=== PATIENT | female | born 1965 | race Caucasian/White ===

== ENCOUNTER 2017-05-08 09:33 | Day surgery (SDC) | payer OTHER ==
[~2017-05-08] VITALS: Ht 160 cm; Wt 90.1 kg
[2017-05-08] VITALS (20 sets, daily range): BP systolic 117–154; BP diastolic 58–82; PULSE 83–96; RESP 14–27; Ht 160 cm; Wt 90.1 kg
[~2017-05-08 09:33] MED LIST: CEFAZOLIN 2 GM/50 ML (PMX) 50 ML IVPB SCH; SOD CHLORIDE 0.9% 1,000 ML IV SCH; SUCCINYLCHOLINE CHLORIDE 100 MG/5 ML SYG IV ONE
[2017-05-08] MEDS ORDERED: BUPIVACAINE 0.25% (MPF) 30 ML INJ ONE (13:37)
[2017-05-08] MEDS ORDERED: FENTAnyl 50 MCG/ML VIAL ONE (13:44)
[2017-05-08] MEDS ORDERED: MIDAZOLAM 1 MG/ML 2 ML INJ ONE ×2 (13:44→16:18)
[2017-05-08] MEDS ORDERED: PROPOFOL 20 ML ONE (13:44)
[2017-05-08] MEDS ORDERED: ROCURONIUM 50 MG INJ ONE (13:44)
[2017-05-08] MEDS ORDERED: LIDOCAINE 1% (MDV) 20 ML INJ ONE (13:45)
[2017-05-08] MEDS ORDERED: ROPIVACAINE 0.5 % 30 ML VIAL ONE (13:45)
[2017-05-08] MEDS ORDERED: CEFAZOLIN 1 GM INJ ONE (14:13)
[2017-05-08] MEDS ORDERED: ONDANSETRON 4 MG INJ ONE (14:15)
[2017-05-08] MEDS ORDERED: DEXAMETHASONE 4 MG/ML 1 ML INJ ONE (14:16)
[2017-05-08] MEDS ORDERED: FAMOTIDINE 20 MG INJ ONE (14:16)
[2017-05-08] MEDS ORDERED: EPHEDrine SULFATE 50 MG/5 ML SYG ONE (14:17)
[2017-05-08] MEDS ORDERED: SUGAMMADEX SODIUM 200 MG/2 ML VIAL IV ONE (14:33)
--- NOTE | 2017-05-08 14:36 | OPR ---
Date/Time of Note Date/Time of Note DATE: 05/08/17 TIME: 14:33 Operative Report Procedure Date: May 08, 2017 Preoperative Diagnosis symptomatic gallstones Postoperative Diagnosis same Operation Performed lap gianni Surgeon: Jamari TRAN Specimens gallbladder Procedure Description Patient is taken to the OR and prepped and draped in usual sterile fashion. Surgical timeout was performed IV antibiotics are given. Infraumbilical incision is made with a 15 blade. Dissection cautery was carried down to the fascia. The fascia is divided. 0 Vicryl U stitch is placed into the fascia. Balloon Galloway trocar is introduced and pneumoperitoneum was established. Mid epigastric 12 mm optical trocar right upper quadrant right upper flank 5 mm optical trocar was placed under direct visualization upon initial inspection there is adhesed to the gallbladder which were taken down bluntly. The cystic duct is identified the critical view was established the cystic duct and cystic artery are divided using a 35 mm echelon vascular stapler gallbladder taken off the gallbladder bed the staple lines reinforced with additional clips gallbladder was retrieved using the Endo Catch bag. There is good hemostasis. Ports removed under direct physician 0 Vicryl U stitch was tied down skin is closed using skin yvonne local anesthesia is injected dry dressings were applied Jamari TRAN May 08, 2017 14:36
[2017-05-08] MEDS ORDERED: KETOROLAC 30 MG INJ IV ONE (15:00)
[2017-05-08] MEDS ORDERED: hydrALAzine 20 MG INJ IV PRN (15:00)
[2017-05-08] MEDS ORDERED: HALOPERIDOL 5 MG INJ IV PRN (15:00)
[2017-05-08] MEDS ORDERED: MIDAZOLAM 1 MG/ML 2 ML INJ IV PRN (15:00)
[2017-05-08] MEDS ORDERED: MEPERIDINE 25 MG INJ IV PRN (15:00)
[2017-05-08] MEDS ORDERED: ONDANSETRON 4 MG INJ IV PRN (15:00)
[2017-05-08] MEDS ORDERED: LORAZEPAM 2 MG INJ IV PRN (15:00)
[2017-05-08] MEDS ORDERED: HYDROmorphONE (0.2 MG/ML) 10ML SYG IV PRN ×3 (15:00)
[2017-05-08] MEDS ORDERED: DIPHENHYDRAMINE 50 MG INJ IV PRN (15:00)
[2017-05-08] MEDS ORDERED: HYDROCODONE/APAP (5/325) TAB PO ONE (15:00)
[2017-05-08] MEDS ORDERED: LABETALOL HCL 20MG INJ IV PRN (15:00)
[2017-05-08] MEDS ORDERED: HYDROmorphONE (0.2 MG/ML) 10ML SYG IV ONE (15:04)
== END 2017-05-08 17:50 | disposition home or self-care (01) ==
LOC: SDS 09:33
PROVIDERS: ATTEND Surgery
DX: K80.20 Calculus of gallbladder without cholecystitis without obstruction (principal); E66.9 Obesity, unspecified; Z68.35 Body mass index [BMI] 35.0-35.9, adult
CPT/HCPCS: 47562; 84703; 88304; J0690; J1100; J1170; J1885; J2250; J2405; J2795; J3010; J7999; Z7512; Z7610

== ENCOUNTER 2017-05-15 19:07 | Emergency (ER) | payer OTHER ==
[~2017-05-15] VITALS: Ht 152.4 cm; Wt 65.0 kg
[2017-05-15 19:11] VITALS: Ht 152.4 cm; Wt 65.0 kg
[2017-05-15] MEDS ORDERED: CEFTRIAXONE 1 GM INJ IM ONE (20:00)
[2017-05-15] MEDS ORDERED: HYDR-906 PO (20:06)
[2017-05-15] MEDS ORDERED: AMOX1TAB9 PO (20:50)
--- NOTE | 2017-05-15 20:55 | ERD ---
ER Documentation Chief Complaint Date/Time DATE: 05/15/17 TIME: 20:52 Chief Complaint from [facility] by Dr. Covarrubias, for fluid drainage from recent gianni HPI This is a 52-year-old lady who is here for a seroma to drain. The patient had gallbladder removal by Dr. Mayfield a week ago and is having some fullness underneath the umbilicus. She went to an outside ER had a CAT scan done which showed a 4.7 x 3.4 cm seroma. The patient was sent here from that ER. I called and spoke with Dr. Mayfield and let him know about the patient's arrival he told me to open the yvonne and expel the seroma. She has had no fever abdominal pain or pus ROS All systems reviewed and are negative except as per history of present illness. Medications Home Meds Active Scripts Amoxicillin/Potassium Clav (Amox-Clav 500-125 mg Tablet) 500-125 mg Tab, 1 TAB PO BID for 7 Days, TAB Prov:JOSE C SANTIAGO DO 05/15/17 Reported Medications Hydrocodone/Acetaminophen ([place] 5-325 Tablet) 1 Each Tablet, 1 EACH PO Q6H, TAB 05/15/17 Allergies Allergies: Coded Allergies: No Known Allergy (Unverified , 05/15/17) PMhx/Soc History of Surgery: Yes (EAR SX 11YRS OLD, CERVICAL CONE OPERATION 2015, BTL 2000, UTERINE BIOSY ) Anesthesia Reaction: No Hx Neurological Disorder: No Hx Respiratory Disorders: No Hx Cardiac Disorders: No Hx Psychiatric Problems: No Hx Miscellaneous Medical Probl: Yes (KIDNEY STONES 15 YEARS AGO, CS '93, '96,' 01, CERVICAL CA) Hx Alcohol Use: No Hx Substance Use: No Hx Tobacco Use: Yes (2 DAYS AGO) Smoking Status: Former smoker FmHx Family History: No coronary disease Physical Exam Vitals Vital Signs Date Time Temp Pulse Resp B/P Pulse Ox O2 Delivery O2 Flow Rate FiO2 05/15/17 19:11 98.3 82 16 107/52 97 Physical Exam Const: Well-developed, well-nourished Head: Atraumatic, normocephalic Eyes: Normal Conjunctiva, PERRLA, EOMI, normal sclera, no nystagmus ENT: Normal External Ears, Nose and Mouth, moist mucus membranes. Neck: Full range of motion. No meningismus, no lymphadenopathy. Resp: Clear to auscultation bilaterally, no wheezing, rhonchi, rales Cardio: Regular rate and rhythm, no murmurs, S1 S2 present Abd: Soft, non tender x 4, non distended. Normal bowel sounds, no guarding or rebound, no pulsitile abdominal masses or bruits Skin: No petechiae or rashes, no ecchymosis , no maculopapular rash, slight erythema around the umbilical wound with yvonne intact. No pus or serous fluid is expressible Back: No midline or flank tenderness Ext: No cyanosis, or edema, FROM x 4, normal inspection, neurovascularly intact x 4 Neur: Awake and alert, STR 5/5 x 4, sensation intact x 4, no focal findings, cerebellum intact Psych: Normal Mood and Affect Results 24 hrs Current Medications Medications (Trade) Dose Ordered Sig/Jey Route PRN Reason Start Time Stop Time Status Last Admin Dose Admin Ceftriaxone Sodium (Rocephin) 1 gm ONCE ONCE IM 05/15/17 20:00 05/15/17 20:01 DC 05/15/17 20:16 Procedures/MDM I removed the yvonne in the middle of the wound left feet to external yvonne intact. Gently probed and the wound to make a small opening about dehiscing the wound. Pressure was put on the inferior part of the wound and a large amount of serosanguineous fluid was expelled. Wound was then cleaned and Steri-Stripped and covered with gauze Departure Diagnosis: Primary Impression: Seroma Condition: Stable Patient Instructions: Seroma, Postsurgical Referrals: Jamari MAYFIELD APOSTOLOS A. DO May 15, 2017 20:55
[2017-05-15 22:20] VITALS: BP 139/72; PULSE 77; RESP 20; TEMP 99.1
== END 2017-05-15 22:22 | disposition home or self-care (01) ==
LOC: E/R 19:07
DX: K91.872 Postprocedural seroma of a digestive system organ or structure following a digestive system procedure (principal); Z87.891 Personal history of nicotine dependence
CPT/HCPCS: 96372; J0696; Z7502

== ENCOUNTER 2017-05-16 10:04 | Emergency (ER) | payer OTHER ==
[~2017-05-16] VITALS: Ht 157.5 cm; Wt 89.0 kg
[~2017-05-16 10:04] MED LIST changes: +AMOX1TAB9 PO; -CEFAZOLIN 2 GM/50 ML (PMX) 50 ML IVPB SCH; +HYDR-906 PO; -SOD CHLORIDE 0.9% 1,000 ML IV SCH; -SUCCINYLCHOLINE CHLORIDE 100 MG/5 ML SYG IV ONE
[2017-05-16 10:07] VITALS: Ht 157.5 cm; Wt 89.0 kg
--- NOTE | 2017-05-16 12:28 | CONS ---
Date/Time of Note Date/Time of Note DATE: 05/16/17 TIME: 12:27 Assessment/Plan Assessment/Plan Chief Complaint/Hosp Course s/p lap gianni with open wound and serous drainage Problems: Additional Assessment/Plan dc home with daily packing and f/u in office Consultation Date/Type/Reason Admit Date/Time Date of Consultation: May 16, 2017 Type of Consultation: General Surgery Reason for Consultation abdominal pain and open wound Referring Provider: NACHO ALDANA MD Hx of Present Illness This is a 52-year-old female who underwent a lap scopic cholecystectomy. She had some abdominal pain and underwent evaluation at outside hospital. CT scan showed a small fluid collection in the infraumbilical space. Patient was evaluated by [facility] ER after transfer from outside hospital ER. Wound was opened and packed one day prior. Patient requested surgical evaluation. Eyes: no complaints ENT: no complaints Respiratory: no complaints Cardiovascular: no complaints Gastrointestinal: other (open wound with drainage), pain Genitourinary: no complaints Musculoskeletal: no complaints Skin: no complaints Neurologic: no complaints Endocrine: no complaints Lymphatic: no complaints Psychological: no complaints Immunologic: no complaints Past Medical History Medical History: other (s/p lap gianni) Social History Smoking Status: Current every day smoker Exam/Review of Systems Vital Signs Vitals Vital Signs Date Time Temp Pulse Resp B/P Pulse Ox O2 Delivery O2 Flow Rate FiO2 05/16/17 10:07 98.9 104 20 126/71 96 Exam Constitutional: alert, oriented, well developed Psych: nl mood/affect, no complaints Head: atraumatic, normocephalic Eyes: EOMI, nl conjunctiva, nl lids ENMT: nl external ears & nose, nl lips & teeth Neck: non-tender, supple Respiratory: clear to auscultation, normal air movement Cardiovascular: regular rate and rhythm Gastrointestinal: other (open infra abdominal wound with drainage) Genitourinary - Female: nl adnexae, nl external genitalia Musculoskeletal: nl extremities to inspection, nl gait and stance Extremities: normal pulses 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
--- NOTE | 2017-05-16 16:01 | ERD ---
ER Documentation Chief Complaint Date/Time DATE: 05/16/17 TIME: 15:56 Chief Complaint Complains of painful urination HPI 52-year-old female patient presents to the ED with a status post laparoscopic cholecystectomy on May 08, 2017 presents to the ED with an open wound that is spontaneously draining at the lower abdomen. Patient was seen here yesterday and 2 yvonne were removed as requested by Dr. Mayfield. Patient presents to the ED as she states that she call Dr. Mayfield's office and they told her to come back to the ED today and that we would give him a call for further evaluation and treatment. Patient states that the wound is getting bigger. Denies any fever, chills, nausea, vomiting, abdominal pain, diarrhea, dysuria, urgency, cough, leg pain. Patient states that she was prescribed Augmentin here at [facility] yesterday May 15, 2017 and has been taking it consistently. Patient was seen at [facility] yesterday and a CT was done which showed a seroma. ROS All systems reviewed and are negative except as per history of present illness. Medications Home Meds Active Scripts Amoxicillin/Potassium Clav (Amox-Clav 500-125 mg Tablet) 500-125 mg Tab, 1 TAB PO BID for 7 Days, TAB Prov:JOSE C SANTIAGO DO 05/15/17 Reported Medications Hydrocodone/Acetaminophen ([place] 5-325 Tablet) 1 Each Tablet, 1 EACH PO Q6H, TAB 05/15/17 Allergies Allergies: Coded Allergies: No Known Allergy (Unverified , 05/16/17) PMhx/Soc History of Surgery: Yes (EAR SX 11YRS OLD, CERVICAL CONE OPERATION 2015, BTL 2000, UTERINE BIOSY ) Anesthesia Reaction: No Hx Neurological Disorder: No Hx Respiratory Disorders: No Hx Cardiac Disorders: No Hx Psychiatric Problems: No Hx Miscellaneous Medical Probl: Yes (KIDNEY STONES 15 YEARS AGO, CS '93, '96,' 01, CERVICAL CA) Hx Alcohol Use: No Hx Substance Use: No Hx Tobacco Use: Yes Smoking Status: Current every day smoker Physical Exam Vitals Vital Signs Date Time Temp Pulse Resp B/P Pulse Ox O2 Delivery O2 Flow Rate FiO2 05/16/17 10:07 98.9 104 20 126/71 96 Physical Exam Const: [id number], well-nourished. In no acute distress. Head: Atraumatic, normocephalic Eyes: Normal Conjunctiva without injection. No purulent discharge. ENT: Normal external ear, nose. Moist oropharynx without tonsillar exudates. Non -erythematous pharynx. Uvula midline. No drooling. No trismus. Neck: No cervical midline tenderness. Full range of motion. No meningismus. No cervical lymphadenopathy. No JVD. Resp: Clear to auscultation bilaterally. No wheezing, rhonchi, rales, or crackles. No accessory muscle use. No retractions. Cardio: Regular rate and rhythm. No murmurs, rubs or gallops. Abd: Soft, nontender, 4 surgical lacerations noted on the abdomen. 9 yvonne noted total on for multiple laparoscopic laceration sites. Slight erythema, ecchymosis noted surrounding the laparoscopic laceration sites. Open wound likely seroma with slight spontaneous serosanguineous drainage noted at laceration sight most inferior to umbilicus. Non distended. Normal bowel sounds. No palpable masses. No rebound tenderness. No guarding. Negative McBurney's point. Negative psoas sign. Negative obturator sign. Skin: No petechiae or rashes Back: No midline tenderness. No CVA tenderness. Ext: No cyanosis, or edema. Neur: Awake and alert. Normal gait. Normal coordination. Psych: Normal Mood and Affect Procedures/MDM This is a 52-year-old female patient with a past medical history of status post laparoscopic cholecystectomy presents the ED complaining of an open wound and wants to see Dr. Mayfield, her surgeon. Patient is afebrile and nontoxic-appearing. This case was discussed with my supervising physician, Dr. Spann who stated that we can consult Dr. Covarrubias for further evaluation and treatment Dr. Mayfield packed the wound site with gauze and was instructed to follow-up with him on May 21, 2017 for further evaluation and treatment. Patient will need a wound check from him as well. There is low suspicion for sepsis, deep space infection, postop complication, postop infection, or other emergent conditions. Discharge medications: Continue taking Augmentin. Follow up with Dr. Covarrubias on May 21, 2017. Instructed patient to return to the ED sooner for any worsening symptoms. Patient's questions were answered. Patient understood and agreed with discharge plan. Patient discharged stable. Departure Diagnosis: Primary Impression: Postoperative wound seroma Condition: Stable Patient Instructions: Seroma, Postsurgical Referrals: [facility] YOU HAVE RECEIVED A MEDICAL SCREENING EXAM AND THE RESULTS INDICATE THAT YOU DO NOT HAVE A CONDITION THAT REQUIRES URGENT TREATMENT IN THE EMERGENCY DEPARTMENT. FURTHER EVALUATION AND TREATMENT OF YOUR CONDITION CAN WAIT UNTIL YOU ARE SEEN IN YOUR DOCTORS OFFICE WITHIN THE NEXT 1-2 DAYS. IT IS YOUR RESPONSIBILITY TO MAKE AN APPOINTMENT FOR FOLOW-UP CARE. IF YOU HAVE A PRIMARY DOCTOR --you should call your primary doctor and schedule an appointment IF YOU DO NOT HAVE A PRIMARY DOCTOR YOU CAN CALL OUR PHYSICIAN REFERRAL HOTLINE AT IF YOU CAN NOT AFFORD TO SEE A PHYSICIAN YOU CAN CHOSE FROM THE FOLLOWING [facility] [address] [facility] [address] [facility] [address] [facility] [address] [facility] [address] [facility] [facility] [address] [facility] [facility] [facility] YOU HAVE RECEIVED A MEDICAL SCREENING EXAM AND THE RESULTS INDICATE THAT YOU DO NOT HAVE A CONDITION THAT REQUIRES URGENT TREATMENT IN THE EMERGENCY DEPARTMENT. FURTHER EVALUATION AND TREATMENT OF YOUR CONDITION CAN WAIT UNTIL YOU ARE SEEN IN YOUR DOCTORS OFFICE WITHIN THE NEXT 1-2 DAYS. IT IS YOUR RESPONSIBILITY TO MAKE AN APPOINTMENT FOR FOLOW-UP CARE. IF YOU HAVE A PRIMARY DOCTOR --you should call your primary doctor and schedule and appointment IF YOU DO NOT HAVE A PRIMARY DOCTOR YOU CAN CALL OUR PHYSICIAN REFERRAL HOTLINE AT . IF YOU CAN NOT AFFORD TO SEE A PHYSICIAN YOU CAN CHOSE FROM THE FOLLOWING [facility] INSTITUTIONS: [facility] [address] [place] [address] [facility] [address] [place] [address] [facility] [address] [place] [address] [facility] Additional Instructions: Keep your appointment with Dr. Mayfield for May 21, 2017.See the doctor sooner or return here if your condition worsens before your appointment time - fever, worsening abdominal pain, etc. RUCHI BAEZ PA-C May 16, 2017 16:00
== END 2017-05-16 13:57 | disposition home or self-care (01) ==
LOC: FTE 10:04
DX: K91.872 Postprocedural seroma of a digestive system organ or structure following a digestive system procedure (principal); F17.210 Nicotine dependence, cigarettes, uncomplicated; Z85.41 Personal history of malignant neoplasm of cervix uteri
CPT/HCPCS: 99282